=== PATIENT | male | born 1985 | race Caucasian/White ===

== ENCOUNTER → 2020-06-12 11:56 | Outpatient (CLI) | payer OTHER, SELFPAY ==
[2020-06-12 12:34] LABS: COVID19 -Nasal RAPID Negative (Negative)
== END ==
PROVIDERS: Visit Provider Physician Assistant
DX: J02.9 Acute pharyngitis, unspecified (principal); R05 Cough; R09.81 Nasal congestion; R43.2 Parageusia
CPT/HCPCS: 87635